=== PATIENT | female | born 1980 | race African-American/Black ===

== ENCOUNTER 2017-11-03 16:00 | Observation (INO) ==
[2017-11-03] MEDS ORDERED: ZIPRASIDONE 20 MG/1 ML VIAL IM STA (17:03)
[2017-11-03] MEDS ORDERED: ZIPRASIDONE 20 MG/1 ML VIAL IM ONE (17:04)
[2017-11-03 19:12] LABS: Basophils % 0.5 % (0.0-0.8); Eosinophils % 0.1 % (0.00-10.9); Hematocrit 35.7 VOL% (35.7-47.0); Hemoglobin 12.4 GM/DL (12.0-16.0); Immature Granulocytes % 0.3 %; Immature Granulocytes Absolute 0.02 #; Lymphocytes # 2.1 10*3/uL (1.4-4.0); Lymphocytes % 28.3 % (21.3-54.2); Mean Corpuscular HGB Conc 34.7 GM/DL (32-36); Mean Corpuscular Hemoglobin 29 PG (27-34); Mean Corpuscular Volume 82.4 FL (87-102); Mean Platelet Volume 10.9 FL (9.6-12.0); Monocytes # 0.5 10*3/uL (0.11-0.8); Monocytes % 6.1 % (1.7-12.7); Neutrophils # 4.8 10*3/uL (1.4-7.4); Neutrophils % 64.7 % (38.7-73.9); Platelet Count 226 T/CUMM (130-400); Red Blood Count 4.33 MC/CUMM (3.8-5.5); Red Cell Distribution Width 13.6 % (9.3-17.3); White Blood Count 7.4 T/CUMM (4-12)
[2017-11-03 19:22] LABS: Ammonia 33 UMOL/L (11-32)
[2017-11-03 19:33] LABS: Alanine Aminotransferase 18 U/L (13-56); Albumin 4.2 G/DL (3.4-5.0); Alkaline Phosphatase 86 U/L (45-117); Aspartate Amino Transferase 14 U/L (0-37); Blood Urea Nitrogen 15 MG/DL (7-18); Calcium 9.5 MG/DL (8.5-10.1); Glucose 79 MG/DL (74-106); Osmolality,Calculated 282.1 MOS/KG (273-304); Potassium 3.2 MMOL/L (3.5-5.1); Sodium 142 MMOL/L (136-145); Total Protein 8.1 G/DL (6.4-8.3)
[2017-11-04] MEDS ORDERED: ZIPRASIDONE 20 MG/1 ML VIAL IM STA (06:47)
[2017-11-04] MEDS ORDERED: ZIPRASIDONE 20 MG/1 ML VIAL IM ONE (07:22)
[2017-11-04] MEDS ORDERED: ZIPRASIDONE 20 MG/1 ML VIAL IM PRN (10:10)
[2017-11-04] MEDS ORDERED: traZODone 50 MG TABLET PO PRN (10:11)
[2017-11-04] MEDS ORDERED: NICOTINE 21 MG/24 HR PATCH TRANSDERM PRN (10:11)
[2017-11-04] MEDS ORDERED: ACETAMINOPHEN 325 MG TABLET PO PRN (10:11)
[2017-11-04] MEDS ORDERED: POTASSIUM CHLORIDE 20 MEQ TABLET PO PRN (10:13)
[2017-11-04] MEDS ORDERED: NIFEdipine 10 MG CAPSULE PO PRN (10:14)
[2017-11-04] MEDS: LACTULOSE 20 GM/30 ML UDCUP PO SCH (12:05)
[2017-11-04 18:43] LABS: Osmolality,Calculated 281.1 MOS/KG (273-304); Potassium 3.3 MMOL/L (3.5-5.1)
[2017-11-05] MEDS ORDERED: POTASSIUM CHLORIDE RIDER 10 MEQ in PREMIX 1 EACH IV PRN (00:07)
[2017-11-05] MEDS ORDERED: HALOPERIDOL 5 MG/ML AMP IM ONE (00:30)
[2017-11-05] MEDS ORDERED: POTASSIUM CHLORIDE INJ 40 MEQ in SODIUM CHLORIDE 0.9% 380 ML IV SCH (01:00)
[2017-11-05] MEDS: LACTULOSE 160 GM/240 ML BOTTLE RECTAL SCH ×2 (02:14→14:59)
[2017-11-05 04:28] LABS: Barbiturates Screen,Urine Negative (Negative); Benzodiazepines Screen,Urine Negative (Negative); Cannabinoid Screen,Urine Positive (Negative); Opiate Screen,Urine Negative (Negative); Phencyclidine Screen,Urine Negative (Negative)
[2017-11-05] MEDS: LACTULOSE 20 GM/30 ML UDCUP PO SCH (05:37)
[2017-11-05 07:41] LABS: Basophils % 0.7 % (0.0-0.8); Eosinophils # 0.1 10*3/uL (0.0-0.87); Eosinophils % 1.8 % (0.00-10.9); Immature Granulocytes % 0.2 %; Immature Granulocytes Absolute 0.01 #; Lymphocytes # 2.3 10*3/uL (1.4-4.0); Lymphocytes % 42.9 % (21.3-54.2); Mean Corpuscular HGB Conc 32.4 GM/DL (32-36); Mean Corpuscular Hemoglobin 28 PG (27-34); Mean Corpuscular Volume 85.2 FL (87-102); Mean Platelet Volume 10.5 FL (9.6-12.0); Monocytes # 0.5 10*3/uL (0.11-0.8); Monocytes % 8.4 % (1.7-12.7); Neutrophils # 2.5 10*3/uL (1.4-7.4); Platelet Count 173 T/CUMM (130-400); Red Blood Count 3.99 MC/CUMM (3.8-5.5); Red Cell Distribution Width 13.5 % (9.3-17.3); White Blood Count 5.5 T/CUMM (4-12)
[2017-11-05 08:11] LABS: Albumin 3.6 G/DL (3.4-5.0); Bilirubin,Total 2.7 MG/DL (0.2-1.0); Potassium 3.9 MMOL/L (3.5-5.1); Total Protein 6.9 G/DL (6.4-8.3)
[2017-11-05 13:06] VITALS: BP 164/70
== END 2017-11-05 15:15 ==
LOC: N.ED 16:00 → N.EDINP 16:00 → N.4E 11-04 09:04
PROVIDERS: ADMIT Internal Medicine; ATTEND Internal Medicine